=== PATIENT | female | born 1945 | race Caucasian/White ===

== ENCOUNTER 2018-07-09 05:41 | Day surgery (SDC) | payer MEDICARE, MEDICAID ==
[2018-07-08 12:10] LABS: BASOPHILS % (AUTO) 0.4 % (0-1); EOSINOPHILS # (AUTO) 0.3 X10'3 (0-0.9); EOSINOPHILS % (AUTO) 3.2 % (0-6); HEMATOCRIT 31.1 % (35.0-45.0); HEMOGLOBIN 10.5 g/dl (12.0-16.0); LYMPHOCYTES # (AUTO) 2.6 X10'3 (1.1-4.8); LYMPHOCYTES % (AUTO) 31.8 % (21-51); MEAN CORPUSCULAR HEMOGLOBIN 30.7 PG (27.0-31.0); MEAN CORPUSCULAR HGB CONC 33.7 % (33.0-36.5); MEAN CORPUSCULAR VOLUME 91.1 FL (78-98); MEAN PLATELET VOLUME 6.9 FL (7.4-10.4); MONOCYTES # (AUTO) 0.8 X10'3 (0-0.9); MONOCYTES % (AUTO) 10.2 % (2-12); NEUTROPHILS # (AUTO) 4.5 X10'3 (1.8-7.7); NEUTROPHILS % (AUTO) 54.4 % (42-75); PLATELET COUNT 369 X10'3 (140-440); RED BLOOD COUNT 3.42 X10'6 (4.20-5.60); RED CELL DISTRIBUTION WIDTH 13.1 % (11.5-14.5); WHITE BLOOD COUNT 8.3 X10'3 (4.5-11.0)
[2018-07-08 12:16] LABS: ALBUMIN 3.4 G/DL (3.4-5.0); ANION GAP 9 (8-16); BLOOD UREA NITROGEN 21 MG/DL (7-18); BUN/CREATININE RATIO 14.3 (6.6-38.0); CALCIUM 8.6 MG/DL (8.5-10.1); CHLORIDE 104 MMOL/L (99-107); CREATININE 1.47 MG/DL (0.40-0.90); GLUCOSE 98 MG/DL (70-104); POTASSIUM 4.2 MMOL/L (3.5-5.1); SODIUM 141 MMOL/L (135-145); TOTAL CARBON DIOXIDE 28.1 MMOL/L (24-32); eGFR 35 ML/MIN
[2018-07-08 12:17] LABS: PARTIAL THROMBOPLASTIN TIME 26 SECONDS (22-32); PROTHROMBIN TIME 9.8 SECONDS (9.0-12.0)
[2018-07-09] VITALS (11 sets, daily range): BP systolic 135–182; BP diastolic 43–78
[~2018-07-09] VITALS: Ht 160 cm; Wt 125.2 kg
[2018-07-09] MEDS ORDERED: normal saline 1000ml 1,000 ML IV SCH (06:00)
[2018-07-09] MEDS ORDERED: diphenhydrAMINE 25mg capsule PO PRN (06:00)
[2018-07-09] MEDS ORDERED: LORazepam 0.5 MG tablet PO PRN (06:00)
[2018-07-09] MEDS ORDERED: CHOL100046 PO (06:18)
[2018-07-09] MEDS ORDERED: ATOR20TA PO (06:18)
[2018-07-09] MEDS ORDERED: SYN0.088T PO (06:18)
[2018-07-09] MEDS ORDERED: HYDR12.5 PO (06:18)
[2018-07-09] MEDS ORDERED: METF500T PO (06:18)
[2018-07-09] MEDS ORDERED: LOSA25TA96 PO (06:18)
[2018-07-09] MEDS ORDERED: GABA-532 PO (06:18)
[2018-07-09] MEDS ORDERED: HYDR-3965 PO (06:18)
[2018-07-09] MEDS ORDERED: DOCO1CAP6 PO (06:18)
[2018-07-09] MEDS ORDERED: acetylcysteine 200 MG/ml 4ml vial PO PRN (06:30)
[2018-07-09] MEDS ORDERED: LIDOcaine/PRILOcaine 5gm cream TP ONE (07:15)
[2018-07-09] MEDS ORDERED: sod bicarbonate 150mEq in D5W 1,150 ML IV ONE (07:15)
[2018-07-09] MEDS ORDERED: iohexol 350MG/ML 100ml bottle IV ONE (07:38)
[2018-07-09] MEDS ORDERED: midazolam 2 mg/2 ml injection ONE (07:38)
[2018-07-09] MEDS ORDERED: heparin 1,000unit/ml 10ml vial 10 ML ONE (07:38)
[2018-07-09] MEDS ORDERED: verapamil 2.5 mg/ml inj IV ONE (07:38)
[2018-07-09] MEDS ORDERED: nitroGLYCERIN-Tridil 50MG/D5W 250 ML IV ONE (07:38)
[2018-07-09] MEDS ORDERED: iohexol 350 MG/ML 50ML vial IV ONE (07:38)
[2018-07-09] MEDS ORDERED: fentaNYL/PF 50MCG/1 ML 2ML syringe ONE (07:38)
[2018-07-09] MEDS ORDERED: LIDOcaine 1% (10mg/ml)w/preservative injection 20ml MDV ONE (07:38)
[2018-07-09] MEDS ORDERED: diltiazem 5mg/ml 5ml inj. IV ONE (08:53)
[2018-07-09 09:11] LABS: ISTAT Hct MIX 29 %PCV (35-48); ISTAT O2 SATURATION MIX VENOUS 65 % (60-80); ISTAT SOURCE MIX
[2018-07-09 09:11] LABS: ISTAT HGB ART 9.5 g/dl (12.0-16.0); ISTAT Hct ART 28 %PCV (35-48); ISTAT O2 SATURATION ARTERIAL 94 % (95-98); ISTAT SOURCE ART
[2018-07-10] MEDS ORDERED: pneumococcal 23-VAL P-sac vacc 25 mcg/0.5ml vial IMVAC ONE (10:00)
== END 2018-07-09 16:00 | disposition home or self-care (01) ==
LOC: SSTAY O 05:41
PROVIDERS: ATTEND Internal Medicine Cardiovascular Disease
DX: I25.10 Atherosclerotic heart disease of native coronary artery without angina pectoris (principal); I10 Essential (primary) hypertension; E78.5 Hyperlipidemia, unspecified; G47.33 Obstructive sleep apnea (adult) (pediatric); E66.9 Obesity, unspecified; M19.90 Unspecified osteoarthritis, unspecified site; E03.9 Hypothyroidism, unspecified; E11.9 Type 2 diabetes mellitus without complications; N19 Unspecified kidney failure; Z90.710 Acquired absence of both cervix and uterus; Z96.698 Presence of other orthopedic joint implants; Z79.891 Long term (current) use of opiate analgesic; Z79.84 Long term (current) use of oral hypoglycemic drugs; Z68.42 Body mass index [BMI] 45.0-49.9, adult; Z87.891 Personal history of nicotine dependence; Z90.49 Acquired absence of other specified parts of digestive tract; Z79.899 Other long term (current) drug therapy; Z98.890 Other specified postprocedural states; Z82.49 Family history of ischemic heart disease and other diseases of the circulatory system
CPT/HCPCS: 36415; 80048; 82803; 82948; 85014; 85025; 85610; 85730; 93005; 93460; 99152; 99153; J1644; J2001; J2250; J3010; J7030; Q0163; Q9967; A4620; C1769; J3490

== ENCOUNTER 2020-03-01 05:05 | Day surgery (SDC) | payer MEDICARE, MEDICAID ==
[2020-02-23 15:03] LABS: BASOPHILS % (AUTO) 0.4 % (0-1); EOSINOPHILS # (AUTO) 0.3 X10'3 (0-0.9); EOSINOPHILS % (AUTO) 3.6 % (0-6); LYMPHOCYTES # (AUTO) 2.7 X10'3 (1.1-4.8); LYMPHOCYTES % (AUTO) 28.8 % (21-51); MEAN CORPUSCULAR HEMOGLOBIN 29.9 PG (27.0-31.0); MEAN CORPUSCULAR HGB CONC 33.1 g/dL (33.0-36.5); MEAN CORPUSCULAR VOLUME 90.1 FL (78-98); MEAN PLATELET VOLUME 6.9 FL (7.4-10.4); MONOCYTES # (AUTO) 0.9 X10'3 (0-0.9); MONOCYTES % (AUTO) 9.1 % (2-12); NEUTROPHILS # (AUTO) 5.5 X10'3 (1.8-7.7); NEUTROPHILS % (AUTO) 58.1 % (42-75); PRE OP HEMATOCRIT 31.8 % (35.0-45.0); PRE OP PLATELET COUNT 414 X10'3 (140-440); RED BLOOD COUNT 3.52 X10'6 (4.20-5.60); RED CELL DISTRIBUTION WIDTH 14.2 % (11.5-14.5)
[2020-02-23 15:08] LABS: PRE OP HEMOGLOBIN 10.5 g/dL (12.0-16.0)
[2020-02-23 15:20] LABS: ALBUMIN 3.4 G/DL (3.4-5.0); ALBUMIN/GLOBULIN RATIO 0.8 (1.1-1.5); ALKALINE PHOSPHATASE 85 IU/L (46-116); BLOOD UREA NITROGEN 38 MG/DL (7-18); BUN/CREATININE RATIO 18.6 (6.6-38.0); CALCIUM 8.5 MG/DL (8.5-10.1); CHLORIDE 102 MMOL/L (99-107); CREATININE 2.04 MG/DL (0.40-0.90); PRE OP ALT 16 U/L (30-65); PRE OP ANION GAP 8 (8-16); PRE OP AST 13 U/L (10-37); PRE OP BILIRUB, TOTAL 0.3 MG/DL (0.0-1.0); PRE OP GLUCOSE 94 MG/DL (70-104); PRE OP POTASSIUM 4.6 MMOL/L (3.4-5.1); PRE OP SODIUM 137 MMOL/L (135-145); TOTAL CARBON DIOXIDE 26.9 MMOL/L (24-32); TOTAL PROTEIN 7.9 G/DL (6.4-8.2); eGFR 24 ML/MIN
[2020-03-01] VITALS (7 sets, daily range): BP systolic 105–190; BP diastolic 45–75
[~2020-03-01] VITALS: Ht 161.3 cm; Wt 117.9 kg
[~2020-03-01 05:05] MED LIST: ASCO500C15 PO; CATS CLAW PO; CHOL100046 PO; CRAN1CAP5 PO; ESCI5TAB PO; GABA-532 PO; HYDR-3965 PO; HYDR12.5 PO; LOSA25TA96 PO; LYSI500T11 PO; SYN0.088T PO; ZINC50TA67 PO; [UNRECOGNIZED DRUG - OTHER] PO; ringers solution, lacted 1,000 ML IV SCH
[2020-03-01] MEDS ORDERED: ceFAZolin 2gm in dextrose, iso 50 ML IV ONE (05:30)
[2020-03-01] MEDS ORDERED: famotidine 20mg tablet PO ONE (05:30)
[2020-03-01] MEDS ORDERED: scopolamine 1.5mg patch.TD72 TD ONE (05:30)
[2020-03-01] MEDS ORDERED: LIDOcaine 1% (10mg/ml) 2ml vial ONE (05:48)
[2020-03-01] MEDS ORDERED: BUPIVAcaine/PF 2.5 mg/ml (0.25%) 30ml vial ONE (07:12)
[2020-03-01] MEDS ORDERED: LIDOcaine 1% 30ml preserv. free vial ONE (07:40)
[2020-03-01] MEDS ORDERED: MIDAZolam 5mg/5ml vial ONE (07:43)
[2020-03-01] MEDS ORDERED: fentaNYL/PF 50MCG/1 ML 2ML syringe ONE ×2 (07:43→08:31)
[2020-03-01] MEDS ORDERED: ketorolac trometh. 30mg/ml inj. ONE (07:44)
[2020-03-01] MEDS ORDERED: ringers solution, lacted 1,000 ML IV SCH (08:08)
[2020-03-01] MEDS ORDERED: proCHLORperazine 10 MG/2 ml inj IV PRN (08:10)
[2020-03-01] MEDS ORDERED: morphine 2 MG/ML inj. syringe IV PRN (08:10)
[2020-03-01] MEDS ORDERED: meperidine/PF 25mg/ml syringe IV PRN ×3 (08:10)
[2020-03-01] MEDS ORDERED: morphine 4 MG/ML inj SYRINge IV PRN (08:10)
[2020-03-01] MEDS ORDERED: ondansetron/PF 4mg/2ml inj IV PRN (08:10)
[2020-03-01] MEDS ORDERED: propofol inj 20 ML IV ONE (08:40)
--- NOTE | 2020-03-01 08:55 | NUR ---
Received from OR via , accompanied by Anesthesiologist DR CASTILLO and report given by Anesthesiolgist. PT IS AWAKE, AND ORIENTED, MOVING EXT X 4, LEFT HAND +COLOR AND MOTION, PIV RIGHT HAND 20G PATENT WITH LR 100MLS/HR, DRESSING ON LEFT WRIST CD, NO C/O PAIN.
--- NOTE | 2020-03-01 09:35 | NUR ---
PT MEETS DISCHARGE CRITERIA. KAYLEE FLUIDS, NO C/O PAIN AT SURGICAL SITE, LEFT HAND WARM, PINK, MOVING EXT AND WIGGLING FINGERS, VERBALIZES UNDERSTANDING OF DISCHARGE INSTRUCTIONS. TAKEN TO CAR VIA W/C. CONFIRMED PT HAS WRITTEN DISCHARGE INSTRUCTIONS IN HER PT BELONGING BAG.
== END 2020-03-01 09:35 | disposition home or self-care (01) ==
LOC: PAS 05:05
PROVIDERS: ATTEND Orthopaedic Surgery Hand Surgery
DX: G56.02 Carpal tunnel syndrome, left upper limb (principal); M18.0 Bilateral primary osteoarthritis of first carpometacarpal joints; G47.30 Sleep apnea, unspecified; F32.9 Major depressive disorder, single episode, unspecified; F41.9 Anxiety disorder, unspecified; I10 Essential (primary) hypertension; E66.01 Morbid (severe) obesity due to excess calories; Z68.42 Body mass index [BMI] 45.0-49.9, adult; E03.9 Hypothyroidism, unspecified; M19.90 Unspecified osteoarthritis, unspecified site; M17.0 Bilateral primary osteoarthritis of knee; E78.5 Hyperlipidemia, unspecified; E11.59 Type 2 diabetes mellitus with other circulatory complications; M16.0 Bilateral primary osteoarthritis of hip; Z90.710 Acquired absence of both cervix and uterus; Z98.890 Other specified postprocedural states; Z87.891 Personal history of nicotine dependence; Z90.49 Acquired absence of other specified parts of digestive tract; Z72.89 Other problems related to lifestyle; Z11.59 Encounter for screening for other viral diseases
CPT/HCPCS: 25310; 25447; 36415; 64721; 80053; 82948; 85025; 93005; J1885; J2001; J2250; J2704; J3010; J3490; U0003; A4215; A7000; J7120

== ENCOUNTER 2020-07-12 12:41 | Emergency (ER) | payer MEDICARE, MEDICAID ==
[~2020-07-12] VITALS: Ht 162.6 cm; Wt 113.6 kg
[~2020-07-12 12:41] MED LIST changes: -ASCO500C15 PO; +ASCO500C18 PO; -ringers solution, lacted 1,000 ML IV SCH
[2020-07-12 14:59] VITALS: BP 184/92
[2020-07-12] MEDS ORDERED: morphine 10mg/ml inj. IM ONE ×2 (15:10→15:15)
== END 2020-07-12 15:30 | disposition home or self-care (01) ==
LOC: ER 12:41
DX: M19.09 Primary osteoarthritis, other specified site (principal); G89.29 Other chronic pain; M79.10 Myalgia, unspecified site; E78.00 Pure hypercholesterolemia, unspecified; I10 Essential (primary) hypertension; Z79.899 Other long term (current) drug therapy
CPT/HCPCS: 96372; 99283; J2270

== ENCOUNTER 2021-08-01 15:17 | Emergency (ER) | payer MEDICARE, MEDICAID ==
[~2021-08-01] VITALS: Ht 162.6 cm; Wt 110.9 kg
[2021-08-01 15:30] VITALS: BP 147/61
[2021-08-01 16:18] LABS: BASOPHILS % (AUTO) 0.2 % (0-1); EOSINOPHILS # (AUTO) 0.4 X10'3 (0-0.9); HEMOGLOBIN 8.5 g/dl (12.0-16.0); LYMPHOCYTES # (AUTO) 1.2 X10'3 (1.1-4.8); MEAN PLATELET VOLUME 6.4 FL (7.4-10.4); MONOCYTES # (AUTO) 0.7 X10'3 (0-0.9)
[2021-08-01 16:19] LABS: EOSINOPHILS % (AUTO) 2.3 % (0-6); HEMATOCRIT 26.6 % (35.0-45.0); LYMPHOCYTES % (AUTO) 6.5 % (21-51); MEAN CORPUSCULAR HEMOGLOBIN 26.6 PG (27.0-31.0); MEAN CORPUSCULAR HGB CONC 31.8 g/dL (33.0-36.5); MEAN CORPUSCULAR VOLUME 83.5 FL (78-98); MONOCYTES % (AUTO) 3.6 % (2-12); NEUTROPHILS # (AUTO) 16.3 X10'3 (1.8-7.7); NEUTROPHILS % (AUTO) 87.4 % (42-75); PLATELET COUNT 737 X10'3 (140-440); RED BLOOD COUNT 3.19 X10'6 (4.20-5.60); RED CELL DISTRIBUTION WIDTH 17.8 % (11.5-14.5); WHITE BLOOD COUNT 18.6 X10'3 (4.5-11.0)
[2021-08-01 16:39] LABS: ALANINE AMINOTRANSFERASE 125 U/L (12-78); ALBUMIN 2.3 G/DL (3.4-5.0); ALBUMIN/GLOBULIN RATIO 0.4 (1.1-1.5); ALKALINE PHOSPHATASE 114 IU/L (46-116); ANION GAP 13 (8-16); ASPARTATE AMINO TRANSFERASE 143 U/L (10-37); BILIRUBIN,TOTAL 0.5 MG/DL (0.1-1.0); BLOOD UREA NITROGEN 88 MG/DL (7-18); CHLORIDE 94 MMOL/L (99-107); CREATININE 3.52 MG/DL (0.40-0.90); GLUCOSE 102 MG/DL (70-104); POTASSIUM 4.3 MMOL/L (3.5-5.1); SODIUM 132 MMOL/L (135-145); TOTAL CARBON DIOXIDE 24.8 MMOL/L (24-32); TOTAL PROTEIN 7.6 G/DL (6.4-8.2); eGFR 13 ML/MIN
[2021-08-01 16:47] LABS: TOTAL CELLS COUNTED 100
[2021-08-01 16:48] LABS: ANISOCYTOSIS 1+; PLATELET ESTIMATE INCREASED
[2021-08-01 16:49] LABS: HYPOCHROMASIA 1+
== END 2021-08-01 21:30 | disposition home or self-care (01) ==
LOC: ER 15:18
DX: R05.9 Cough, unspecified (principal); Z20.822 Contact with and (suspected) exposure to COVID-19; E78.00 Pure hypercholesterolemia, unspecified; I11.0 Hypertensive heart disease with heart failure; I50.9 Heart failure, unspecified; M19.90 Unspecified osteoarthritis, unspecified site; I12.0 Hypertensive chronic kidney disease with stage 5 chronic kidney disease or end stage renal disease; N18.5 Chronic kidney disease, stage 5; I25.2 Old myocardial infarction; Z79.899 Other long term (current) drug therapy
CPT/HCPCS: 36415; 71045; 80053; 83880; 84484; 85007; 85025; 87635; 93005; 99285; C9803

== ENCOUNTER 2021-08-22 07:44 | Day surgery (SDC) | payer MEDICARE, MEDICAID ==
[2021-08-22] VITALS (10 sets, daily range): BP systolic 100–156; BP diastolic 51–83
[~2021-08-22] VITALS: Ht 162.6 cm; Wt 110.0 kg
[2021-08-22] MEDS ORDERED: sodium bicarbonate (8.4%) inj. 150 ML in dextrose 5%-water 1,000 ML IV ONE ×2 (08:20→08:22)
[2021-08-22] MEDS ORDERED: LORazepam 0.5 MG tablet PO PRN (08:20)
[2021-08-22] MEDS ORDERED: diphenhydrAMINE 25mg capsule PO PRN ×2 (08:20→10:35)
[2021-08-22] MEDS ORDERED: LIDOcaine/PRILOcaine 5gm cream TP ONE (08:25)
[2021-08-22] MEDS ORDERED: LOSA50TA64 PO (08:29)
[2021-08-22] MEDS ORDERED: ATOR20TA66 PO (08:29)
[2021-08-22] MEDS ORDERED: LEFL20TA17 PO (08:29)
[2021-08-22] MEDS ORDERED: APIX5TAB3 PO (08:29)
[2021-08-22] MEDS ORDERED: FURO20TA4 PO (08:29)
[2021-08-22] MEDS ORDERED: LINA5TAB4 PO (08:29)
[2021-08-22] MEDS ORDERED: TRAM50TA2 PO (08:29)
[2021-08-22 08:48] LABS: ALBUMIN 2.6 G/DL (3.4-5.0); ANION GAP 9 (8-16); APTT 25 SECONDS (22-32); BLOOD UREA NITROGEN 23 MG/DL (7-18); BUN/CREATININE RATIO 11.5 (6.6-38.0); CALCIUM 8.4 MG/DL (8.5-10.1); CHLORIDE 103 MMOL/L (99-107); GLUCOSE 97 MG/DL (70-104); POTASSIUM 3.6 MMOL/L (3.5-5.1); SODIUM 139 MMOL/L (135-145); TOTAL CARBON DIOXIDE 27.1 MMOL/L (24-32); eGFR 24 ML/MIN
[2021-08-22 08:53] LABS: BASOPHILS # (AUTO) 0.1 X10'3 (0-0.2); BASOPHILS % (AUTO) 1.2 % (0-1); EOSINOPHILS # (AUTO) 0.8 X10'3 (0-0.9); EOSINOPHILS % (AUTO) 11.6 % (0-6); HEMATOCRIT 29.1 % (35.0-45.0); HEMOGLOBIN 9.3 g/dl (12.0-16.0); LYMPHOCYTES # (AUTO) 1.5 X10'3 (1.1-4.8); LYMPHOCYTES % (AUTO) 21.6 % (21-51); MEAN CORPUSCULAR HEMOGLOBIN 27.5 PG (27.0-31.0); MEAN CORPUSCULAR HGB CONC 31.9 g/dL (33.0-36.5); MEAN PLATELET VOLUME 6.9 FL (7.4-10.4); MONOCYTES # (AUTO) 0.9 X10'3 (0-0.9); MONOCYTES % (AUTO) 13.4 % (2-12); NEUTROPHILS # (AUTO) 3.7 X10'3 (1.8-7.7); NEUTROPHILS % (AUTO) 52.2 % (42-75); PLATELET COUNT 525 X10'3 (140-440); RED BLOOD COUNT 3.38 X10'6 (4.20-5.60); RED CELL DISTRIBUTION WIDTH 19.6 % (11.5-14.5)
[2021-08-22] MEDS ORDERED: acetylcysteine 200 MG/ml 4ml vial PO PRN (10:30)
[2021-08-22] MEDS ORDERED: acetylcysteine 200 MG/ml 4ml vial PO SCH ×2 (10:31→10:32)
[2021-08-22 11:11] LABS: ANISOCYTOSIS 2+; HYPOCHROMASIA 1+; PLATELET ESTIMATE INCREASED
[2021-08-22] MEDS ORDERED: nitroGLYCERIN-Tridil 50MG/D5W 250 ML IV ONE (11:11)
[2021-08-22] MEDS ORDERED: verapamil 2.5 mg/ml inj IV ONE (11:11)
[2021-08-22 11:12] LABS: POLYCHROMASIA FEW; STOMATOCYTES 1+
[2021-08-22] MEDS ORDERED: iohexol 350 MG/ML 50ML vial IV ONE (11:12)
[2021-08-22] MEDS ORDERED: heparin 1,000unit/ml 10ml vial 10 ML ONE (11:12)
[2021-08-22] MEDS ORDERED: midazolam 1 mg/ML 2ml injection ONE (11:12)
[2021-08-22] MEDS ORDERED: LIDOcaine 1% (10mg/ml)w/preservative injection 20ml MDV ONE (11:12)
[2021-08-22] MEDS ORDERED: iohexol 350MG/ML 100ml bottle IV ONE (11:12)
[2021-08-22] MEDS ORDERED: fentaNYL/PF 50MCG/1 ML 2ML syringe ONE (11:12)
[2021-08-22] MEDS ORDERED: hydrALAZINE 20mg/ml inj. IV ONE (12:12)
[2021-08-22 12:16] LABS: ISTAT HGB ART 8.2 g/dl (12.0-16.0); ISTAT Hct ART 24 %PCV (35-48); ISTAT O2 SATURATION ARTERIAL 98 % (95-98); ISTAT SOURCE ART
[2021-08-22 12:37] LABS: ISTAT Hct MIX 25 %PCV (35-48); ISTAT O2 SATURATION MIX VENOUS 63 % (60-80); ISTAT SOURCE VEN
[2021-08-22] MEDS ORDERED: traMADol 50MG tablet PO ONE (13:15)
== END 2021-08-22 17:15 | disposition home or self-care (01) ==
LOC: SSTAY O 07:44
PROVIDERS: ATTEND Internal Medicine Cardiovascular Disease
DX: R94.39 Abnormal result of other cardiovascular function study (principal); I25.10 Atherosclerotic heart disease of native coronary artery without angina pectoris; E11.22 Type 2 diabetes mellitus with diabetic chronic kidney disease; I12.9 Hypertensive chronic kidney disease with stage 1 through stage 4 chronic kidney disease, or unspecified chronic kidney disease; N18.9 Chronic kidney disease, unspecified; E78.5 Hyperlipidemia, unspecified; G47.33 Obstructive sleep apnea (adult) (pediatric); I27.20 Pulmonary hypertension, unspecified; E66.9 Obesity, unspecified; Z68.41 Body mass index [BMI] 40.0-44.9, adult; M06.9 Rheumatoid arthritis, unspecified; G62.9 Polyneuropathy, unspecified; E11.40 Type 2 diabetes mellitus with diabetic neuropathy, unspecified; F17.211 Nicotine dependence, cigarettes, in remission; Z86.711 Personal history of pulmonary embolism; Z79.899 Other long term (current) drug therapy; Z90.49 Acquired absence of other specified parts of digestive tract; Z98.890 Other specified postprocedural states
CPT/HCPCS: 36415; 76937; 80048; 82803; 82948; 85014; 85025; 85610; 85730; 93005; 93460; 99152; C1751; C1769; C1894; J0360; J1644; J2250; J3010; J3490; J7070; Q0163; Q9967; 85008; 99153; A4620

== ENCOUNTER 2022-10-11 14:33 | Outpatient (CLI) | payer MEDICARE, MEDICAID ==
[~2022-10-11 14:33] MED LIST changes: +APIX5TAB3 PO; +ATOR20TA66 PO; -CATS CLAW PO; -CRAN1CAP5 PO; -ESCI5TAB PO; +FURO20TA4 PO; -HYDR-3965 PO; -HYDR12.5 PO; +LEFL20TA17 PO; +LINA5TAB4 PO; -LOSA25TA96 PO; +LOSA50TA64 PO; -LYSI500T11 PO; +TRAM50TA2 PO; -ZINC50TA67 PO; -[UNRECOGNIZED DRUG - OTHER] PO
== END 2022-10-11 23:59 | disposition home or self-care (01) ==
LOC: CARD DIAG 14:33
PROVIDERS: ATTEND Internal Medicine Cardiovascular Disease
DX: I34.81 Nonrheumatic mitral (valve) annulus calcification (principal)
CPT/HCPCS: 93306

== ENCOUNTER → 2024-02-15 | Outpatient (CLI) | payer MEDICARE, MEDICAID ==
[~2024-02-15] MED LIST changes: -LEFL20TA17 PO; +LEFL20TA21 PO
== END | disposition home or self-care (01) ==
LOC: RAD 09:58
PROVIDERS: ATTEND Internal Medicine Gastroenterology
DX: K44.9 Diaphragmatic hernia without obstruction or gangrene (principal); K21.9 Gastro-esophageal reflux disease without esophagitis; R13.10 Dysphagia, unspecified
CPT/HCPCS: 74220